=== PATIENT | female | born 1950 | race Hispanic/Latino ===

== ENCOUNTER 2017-03-24 14:07 | Outpatient (CLI) | payer OTHER ==
--- NOTE | 2017-04-01 08:04 | Vascular Lab Report ---
CAROTID DUPLEX STUDY: RIGHT PSVEDV CCA PROX:[id number] CCA DIST:7714 ICA PROX:[id number] ICA MID:[id number] ICA DIST:[id number] ECA: 160 VERT: 76 10 LEFT PSVEDV CCA PROX:9017 CCA DIST:7514 ICA PROX:03446 ICA MID:[id number] ICA DIST:29947 ECA: 132 VERT: 37 12 REASON FOR EXAM: Carotid artery stenosis. COMMENTS ON THE RIGHT: Doppler frequency analysis is consistent with 50 to 79 percent diameter reduction of the internal carotid artery. Moderate amount of plaque is noted in the carotid bulb and internal carotid artery The common carotid artery is patent. The external carotid artery is patent. The vertebral artery has antegrade flow. COMMENTS ON THE LEFT: Doppler frequency analysis is consistent with 16 to 49 percent diameter reduction of the internal carotid artery. Minimal amount of plaque is seen. The common carotid artery is patent. The external carotid artery is patent. The vertebral artery has antegrade flow. IMPRESSION: 50 to 79 percent diameter reduction in the right internal carotid artery 16 to 49 percent diameter reduction in the left internal coronary Clinical correlation is recommended. If warranted consider contrast study with CTA or MRA
== END 2017-03-24 14:08 | disposition home or self-care (01) ==
LOC: VAS 14:07
PROVIDERS: ATTEND Family Medicine
DX: R09.89 Other specified symptoms and signs involving the circulatory and respiratory systems (principal); I10 Essential (primary) hypertension
CPT/HCPCS: 93880